=== PATIENT | female | born 1990 | race African-American/Black ===

== ENCOUNTER 2017-05-11 13:33 | Emergency (ER) | payer OTHER ==
[2017-05-11 13:57] VITALS: BP 117/67; PULSE 71; TEMP 98.5; BMI 24.5
--- NOTE | 2017-05-11 14:47 | PDOC ---
History of Present Illness - General Chief Complaint: Rash Stated Complaint: BITE/RASH Time Seen by Provider: 05/11/17 14:36 History Source: Patient Exam Limitations: No Limitations - History of Present Illness Initial Comments: 05/11/17 14:47 27 yr female with itchy rash to the forearm and back of neck for 2 weeks. Pt denies fever or chills. no pmhx Timing/Duration: reports: week Severity: Yes: mild Location: reports: extremities, other (baco of neck) Respiratory Risk Factors: reports: no cause identified, insect bite (possible) Past History - Past Medical History Allergies/Adverse Reactions: Allergies Allergy/AdvReac Type Severity Reaction Status Date / Time No Known Allergies Allergy Verified 05/11/17 13:52 Home Medications: Ambulatory Orders Hydrocortisone 1% Cream [Hytone 1% Cream -] 1 applic TP TID #1 tube 05/11/17 - Reproductive History (#): 2 Para: 1 Therapeutic (s) & number: Yes (D&C 01/05/16) - Suicide/Smoking/Psychosocial Hx Smoking History: Never smoked *Physical Exam - Vital Signs Last Vital Signs Temp Pulse Resp BP Pulse Ox 98.5 F 71 18 117/67 99 05/11/17 13:52 05/11/17 13:52 05/11/17 13:52 05/11/17 13:52 05/11/17 13:52 - Physical Exam General Appearance: Yes: Nourished HEENT: positive: EOMI, EMEKA Neck: positive: Supple. negative: Tender Respiratory/Chest: positive: Lungs Clear, Normal Breath Sounds Cardiovascular: positive: Regular Rhythm, Regular Rate Gastrointestinal/Abdominal: positive: Normal Bowel Sounds, Soft Musculoskeletal: positive: Normal Inspection Extremity: positive: Normal Capillary Refill, Normal Inspection, Normal Range of Motion Integumentary: positive: Normal Color, Dry, Warm, Rash (right forearm, left forearm left side neck with scattered scabbed areas, no drainage mild eryhthema) Neurologic: positive: Fully Oriented, Alert, Normal Mood/Affect, Normal Response , Motor Strength 5/5 Medical Decision Making - Medical Decision Making 05/11/17 15:24 cc: rash to the arms and back of neck itchy mostly happens at work pt states denies any family members with same pt denies any insects at her work station or in her bed. will prescribe cortisone cream pt understands the plan of care all questions asked and answered *DC/Admit/Observation/Transfer Diagnosis at time of Disposition: Rash - Discharge Dispostion Disposition: HOME Condition at time of disposition: Good - Prescriptions Prescriptions: Hydrocortisone 1% Cream [Hytone 1% Cream -] 1 applic TP TID #1 tube - Referrals Referrals: Corrie Harris MD [Staff Physician] - - Patient Instructions Additional Instructions: apply AVeeno or Lubriderm or Eucerin cream to the skin twice a day to keep moist apply the cortisone cream 2-3 times a day to the rash take a benadryl as directed for any itching follow with the correctional counselor/case manager for follow up if worse
== END 2017-05-11 15:15 | disposition home or self-care (01) ==
LOC: JERFT 13:33
DX: R21 Rash and other nonspecific skin eruption (principal)
CPT/HCPCS: 99281-25

== ENCOUNTER 2017-12-14 16:23 | Emergency (ER) | payer OTHER ==
[2017-12-14 16:34] VITALS: BP 116/71; PULSE 87; TEMP 98.3; BMI 24.5
[2017-12-14] MEDS ORDERED: ONDANSETRON 4 MG/2 ML VIAL IVPUSH ONE (17:09)
[2017-12-14] MEDS ORDERED: SODIUM CHLORIDE 1,000 ML IV STA (17:09)
[2017-12-14] MEDS ORDERED: FAMOTIDINE 20 MG/50 ML IVPB 20 MG/50 ML MG IVPB ONE ×2 (17:09→18:04)
--- NOTE | 2017-12-14 17:22 | PDOC ---
Attending Attestation - Resident Resident Name: Aubrey Ho - ED Attending Attestation I have performed the following: I have examined & evaluated the patient, The case was reviewed & discussed with the resident, I agree w/resident's findings & plan, Exceptions are as noted - HPI HPI: 12/14/17 17:21 -year-old female who admits last menstrual period was the 21st presents with nausea and vomiting for the past 5 days. She denies any vaginal bleeding or pelvic pain. She denies fever or chills or dysuria - Physicial Exam PE: 12/15/17 00:27 wnwd 27 yo female head ncat neck supple abd no rebound,no guarding extremities no edema,no erythema neuro axox3,,ambulatory skin warm and dry psych appropriate - Medical Decision Making 12/14/17 17:22 Impression hyperemesis gravidarum. Plan urinalysis, IV fluids, pelvic ultrasound
[2017-12-14 17:58] LABS: ALBUMIN 4.2 g/dl (3.4-5.0); ANION GAP 7 (8-16); BLOOD UREA NITROGEN 6 mg/dL (7-18); CALCIUM 9.5 mg/dL (8.5-10.1); CHLORIDE 104 mmol/L (98-107); CO2 27 mmol/L (21-32); CREATININE 0.8 mg/dL (0.55-1.02); GLUCOSE,RANDOM 77 mg/dL (74-106); LIPASE 99 U/L (73-393); SGPT/ALT 19 U/L (12-78); SODIUM 138 mmol/L (136-145)
[2017-12-14 18:00] LABS: ALK PHOS 44 U/L (45-117); BILIRUBIN,TOTAL 0.7 mg/dL (0.2-1.0); TOT PROT 8.5 g/dl (6.4-8.2)
--- NOTE | 2017-12-14 18:00 | PDOC ---
History of Present Illness - General Chief Complaint: Pain, Acute Stated Complaint: STOMACH PAIN Time Seen by Provider: 12/14/17 16:58 History Source: Patient Exam Limitations: No Limitations - History of Present Illness Initial Comments: 12/14/17 18:03 Patient is a 27F here today complaining of 5 days of vomiting, abdominal pain, and generalized body aches. She states that she started vomiting 5 days ago and has been able to keep little down. After vomiting, patient states she started developing abdominal pain, back pain, and body aches. Denies fevers, endorses chills. Denies blood in vomit. Denies pain with urination. Patient states that she just took a home test that said she was , last menstrual period was on 10/31. Has not had any workup at this point. She states that she plans to go back to her prior OBGYN for her first . She reports no complications in her first . Past History - Past Medical History Allergies/Adverse Reactions: Allergies Allergy/AdvReac Type Severity Reaction Status Date / Time No Known Allergies Allergy Verified 12/14/17 16:31 Home Medications: Ambulatory Orders Cephalexin Monohydrate [Keflex -] 500 mg PO BID #14 capsule 12/14/17 Ondansetron [Zofran *Odt*] 8 mg SL TID PRN #21 od.tablet 12/14/17 COPD: No Other medical history: DENIES. - Reproductive History (#): 2 Para: 1 Therapeutic (s) & number: Yes (D&C 01/05/16) - Suicide/Smoking/Psychosocial Hx Smoking History: Never smoked Review of Systems - Review of Systems Comments:: 12/14/17 18:07 GENERAL/CONSTITUTIONAL: No fever. Positive for chills. No weakness. HEAD, EYES, EARS, NOSE AND THROAT: No change in vision. No sore throat. CARDIOVASCULAR: No chest pain or shortness of breath RESPIRATORY: No cough, wheezing, or hemoptysis. GASTROINTESTINAL: Positive for nausea, vomiting. Negative for diarrhea or constipation. GENITOURINARY: No dysuria, frequency, or change in urination. MUSCULOSKELETAL: No joint or muscle swelling or pain. No neck pain. Positive for back pain. SKIN: No rash NEUROLOGIC: No headache, vertigo, loss of consciousness, or change in strength/ sensation. HEMATOLOGIC/LYMPHATIC: No anemia, easy bleeding, or history of blood clots. ALLERGIC/IMMUNOLOGIC: No hives or skin allergy. *Physical Exam - Vital Signs Last Vital Signs Temp Pulse Resp BP Pulse Ox 98.3 F 87 19 116/71 98 12/14/17 16:31 12/14/17 16:31 12/14/17 16:31 12/14/17 16:31 12/14/17 16:31 - Physical Exam Comments: 12/14/17 18:08 GENERAL: Awake, alert, and fully oriented, in no acute distress HEAD: No signs of trauma, normocephalic, atraumatic EYES: PERRLA, EOMI, sclera anicteric, conjunctiva clear ENT: Auricles normal inspection, hearing grossly normal, nares patent, oropharynx clear without exudates. Dry mucosa NECK: Normal ROM, supple, no lymphadenopathy, JVD, or masses LUNGS: No distress, speaks full sentences, clear to auscultation bilaterally HEART: Regular rate and rhythm, normal S1 and S2, no murmurs, rubs or gallops, peripheral pulses normal and equal bilaterally. ABDOMEN: Diffusely mildly tender, no cva tenderness, normoactive bowel sounds. No guarding, no rebound. No masses EXTREMITIES: Normal inspection, Normal range of motion, no edema. No clubbing or cyanosis. NEUROLOGICAL: Cranial nerves II through XII grossly intact. Normal speech, no focal sensorimotor deficits SKIN: Warm, Dry, normal turgor, no rashes or lesions noted. ED Treatment Course - LABORATORY CBC & Chemistry Diagram: 12/14/17 17:27 12/14/17 17:27 - RADIOLOGY Radiology Studies Ordered: Category Date Time Status TRANSVAGINAL US PREG [US] Stat Ultrasound 12/14/17 17:10 Ordered Medical Decision Making - Medical Decision Making 12/14/17 18:09 Patient is 27F here today with vomiting, abdominal pain. Vital signs stable and normal. LMP 4/21. Will treat with fluids, zofran, pepcid. Will evaluate with cbc, cmp, ua, lipase, type and screen, tvus. DDx includes, but is not limited to: UTI, ectopic, gastritis, hyperemesis gravidarum. 12/14/17 19:28 Laboratory Tests 12/14/17 17:30 Ur Leukocyte Esterase 1+ H Urine WBC (Auto) 5 CBC, CMP normal. UA shows soft UTI, will treat due to . Will cover with keflex. US shows IUP [id number] IUP. 12/14/17 19:37 Tolerating PO. Will discharge with OBGYN follow up, keflex and zofran. 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 *DC/Admit/Observation/Transfer Diagnosis at time of Disposition: Intrauterine , UTI (urinary tract infection) - Discharge Dispostion Disposition: HOME Condition at time of disposition: Good Decision to Admit order: No - Prescriptions Prescriptions: Cephalexin Monohydrate [Keflex -] 500 mg PO BID #14 capsule Ondansetron [Zofran *Odt*] 8 mg SL TID PRN #21 od.tablet PRN Reason: Nausea And/Or Vomiting - Referrals - Patient Instructions Printed Discharge Instructions: DI for Urinary Tract Infection (UTI) Additional Instructions: Please return if you have any new, worsening or concerning symptoms. Please follow up with your OBGYN doctor this week. Please take zofran as needed for nausea. Please take your antibiotic. Please finish your antibiotic until it has finished , even if you feel better. - Post Discharge Activity
[2017-12-14 18:01] LABS: BASO % 0.7 % (0-2.0); EOS % 1.1 % (0-4.5); HEMATOCRIT 41.5 % (32.4-45.2); LYMPH % 44.3 % (8-40); MCH 28.1 pg (25.7-33.7); MCHC 33.6 g/dl (32.0-36.0); MEAN CELL VOLUME 83.5 fl (80-96); MEAN PLT VOLUME 9.2 fl (7.5-11.1); MONO % 7.3 % (3.8-10.2); NEUT % 46.6 % (42.8-82.8); PLATELET COUNT 256 K/MM3 (134-434); RBC 4.97 M/mm3 (3.60-5.2); RDW 13.1 % (11.6-15.6); WHITE BLOOD COUNT 4.6 K/mm3 (4.0-10.0)
[2017-12-14 18:03] LABS: POTASSIUM 4.1 mmol/L (3.5-5.1); SGOT/AST 18 U/L (15-37)
[2017-12-14] MEDS ORDERED: ONDANSETRON 4 MG/2 ML VIAL ONE (18:04)
[2017-12-14 18:50] LABS: URINE APPEARANCE SLCLOUDY; URINE BILIRUBIN NEGATIVE (<2.0 mg/dL); URINE BLOOD NEGATIVE (NEGATIVE); URINE COLOR YELLOW; URINE GLUCOSE (UA) NEGATIVE (NEGATIVE); URINE KETONE 1+ (NEGATIVE); URINE NITRITE NEGATIVE (NEGATIVE); URINE PROTEIN NEGATIVE (NEGATIVE)
[2017-12-14 19:03] LABS: URINE LEUK ESTERASE 1+ (NEGATIVE)
[2017-12-14 19:10] LABS: EPI CELLS FEW /HPF (FEW); URINE MUCUS RARE
[2017-12-14] MEDS ORDERED: ONDANSETRON *ODT* 4 MG TABLET SL ONE (19:41)
[2017-12-14] MEDS ORDERED: CEPHALEXIN MONOHYDRATE 500 MG CAPSULE (UD) PO ONE (19:41)
[2017-12-14] MEDS ORDERED: ONDANSETRON *ODT* 4 MG TABLET ONE (19:46)
== END 2017-12-14 19:48 | disposition home or self-care (01) ==
LOC: JER 16:23
PROC: 3E0337Z Introduction of Electrolytic and Water Balance Substance into Peripheral Vein, Percutaneous Approach (ICD-10-PCS; principal; 2017-12-14)
PROC: 3E033GC Introduction of Other Therapeutic Substance into Peripheral Vein, Percutaneous Approach (ICD-10-PCS; 2017-12-14)
PROC: 3E033GC Introduction of Other Therapeutic Substance into Peripheral Vein, Percutaneous Approach (ICD-10-PCS; 2017-12-14)
DX: O23.31 Infections of other parts of urinary tract in pregnancy, first trimester (principal); Z3A.01 Less than 8 weeks gestation of pregnancy
CPT/HCPCS: 36415; 76817-TC; 80053; 81003; 81015; 83690; 84702; 85025; 86850; 86900; 86901; 99282-25; J7030

== ENCOUNTER 2021-01-14 09:33 | Emergency (ER) | payer OTHER ==
[2021-01-14 09:39] VITALS: BP 120/83; PULSE 78; TEMP 97.8; BMI 26.4
[2021-01-14] MEDS ORDERED: IBUPROFEN 600 MG TABLET (FP) PO ONE ×2 (10:06→10:10)
== END 2021-01-14 10:20 | disposition home or self-care (01) ==
LOC: JERFT 09:33
DX: R51.9 Headache, unspecified (principal); V49.40XA Driver injured in collision with unspecified motor vehicles in traffic accident, initial encounter
CPT/HCPCS: 99283-25

== ENCOUNTER 2021-02-03 02:57 | Emergency (ER) | payer OTHER ==
[2021-02-03 03:23] VITALS: BMI 26.4
[2021-02-03] MEDS ORDERED: ACETAMINOPHEN 1000 MG/100 ML VIAL (NON FORMULARY) IVPB ONE (03:50)
[2021-02-03 04:13] LABS: BASO % 0.3 % (0-2.0); EOS % 1.2 % (0-4.5); HEMATOCRIT 34.9 % (32.4-45.2); HEMOGLOBIN 11.8 GM/dL (10.7-15.3); LYMPH % 30.8 % (8-40); MCHC 33.8 g/dl (32.0-36.0); MEAN CELL VOLUME 82.8 fl (80-96); MEAN PLT VOLUME 8.7 fl (7.5-11.1); MONO % 6.7 % (3.8-10.2); PLATELET COUNT 238 10^3/uL (134-434); RBC 4.21 M/mm3 (3.60-5.2); RDW 13.6 % (11.6-15.6)
[2021-02-03] MEDS ORDERED: ACETAMINOPHEN INJECTION 100 ML IVPB ONE (04:17)
[2021-02-03 04:36] LABS: ALBUMIN 3.5 g/dl (3.4-5.0); BLOOD UREA NITROGEN 8.6 mg/dL (7-18); CALCIUM 8.8 mg/dL (8.5-10.1)
[2021-02-03 04:39] LABS: CREATININE 0.8 mg/dL (0.55-1.3)
[2021-02-03 04:41] LABS: BILIRUBIN,TOTAL 0.2 mg/dL (0.2-1); TOT PROT 7.2 g/dl (6.4-8.2)
[2021-02-03 05:19] LABS: INR 0.94 (0.83-1.09); PROTHROMBIN TIME (PATIENT) 11.6 SEC (9.7-13.0)
[2021-02-03 05:22] LABS: ACTIVATED PTT 26.3 SECONDS (25.2-36.5)
[2021-02-03 09:16] VITALS: BP 115/72; PULSE 82; TEMP 98
== END 2021-02-03 09:15 | disposition home or self-care (01) ==
LOC: JER 02:57
PROC: 3E0333Z Introduction of Anti-inflammatory into Peripheral Vein, Percutaneous Approach (ICD-10-PCS; principal; 2021-02-03)
DX: O26.851 Spotting complicating pregnancy, first trimester (principal); Z3A.01 Less than 8 weeks gestation of pregnancy
CPT/HCPCS: 36415; 76801-TC; 80053; 83605; 83690; 84702; 85025; 85610; 85730; 86850; 86900; 86901; 99284-25; J0131

== ENCOUNTER 2023-09-03 10:09 | Emergency (ER) | payer SELFPAY ==
[2023-09-03 10:17] VITALS: BP 120/82; PULSE 103; RESP 16; TEMP 97.4; BMI 24.7
[2023-09-03] MEDS ORDERED: ONDANSETRON *ODT* 4 MG TABLET ONE (10:33)
[2023-09-03] MEDS: ONDANSETRON *ODT* 4 MG TABLET SL ONE (10:35)
[2023-09-03 11:29] LABS: HCG,QUALITATIVE URINE Positive
[2023-09-03 11:31] LABS: EPI CELLS 30 /uL (0-25.1); HYALINE CASTS 8 /uL (0-3.1); PH,URINE 5.5 (5.0-8.0); URINE APPEARANCE CLEAR; URINE BACTERIA 81 /uL (0-1359); URINE BILIRUBIN NEGATIVE (NEGATIVE); URINE COLOR YELLOW; URINE GLUCOSE (UA) NEGATIVE (NEGATIVE); URINE KETONE 2+ (NEGATIVE); URINE LEUK ESTERASE NEGATIVE (NEGATIVE); URINE NITRITE NEGATIVE (NEGATIVE); URINE PROTEIN 2+ (NEGATIVE); URINE RBC 39 /uL (0-23.9); URINE WBC 25 /uL (0-25.8)
== END 2023-09-03 11:50 | disposition home or self-care (01) ==
LOC: JERFT 10:09
DX: O21.9 Vomiting of pregnancy, unspecified (principal); Z3A.00 Weeks of gestation of pregnancy not specified
CPT/HCPCS: 81003; 84703; 87086; 99284-25; Q0162